=== PATIENT | male | born 1975 | race Caucasian/White ===

== ENCOUNTER 2017-05-15 22:39 | Emergency (ER) | payer SELFPAY ==
[2017-05-15 22:51] VITALS: BP 152/91
[2017-05-15] MEDS ORDERED: GI Cocktail Oral Solution 30 ML PO ONE (23:59)
[2017-05-15] MEDS ORDERED: Famotidine 20 MG/2 ML SDV IVPUSH ONE (23:59)
[2017-05-16 00:38] LABS: CHLORIDE,CL 101 mmol/L (101-111); SODIUM,NA 138 mmol/L (135-145)
--- NOTE | 2017-05-16 02:06 | EDM.PDOC ---
ED HPI GENERAL MEDICAL PROBLEM - General Chief Complaint: Abdominal Pain Stated Complaint: UPPER ABD PAIN Time Seen by Provider: 05/15/17 23:53 Source of Information: Reports: Patient History Limitations: Reports: No Limitations - History of Present Illness INITIAL COMMENTS - FREE TEXT/NARRATIVE: c/o epigastric pain, unable to find comfortable position. Has not tried anything for discomfort. No fevers No nausea or vomiting. Onset: Today Treatments [employer]MB[employer] TIP[employer] MACHINE: Reports: Other Medication(s) Epigastric Pain Score (Numeric/FACES): 6 - Related Data Allergies Allergy/AdvReac Type Severity Reaction Status Date / Time Penicillins Allergy Pain Verified 05/15/17 22:52 Home Meds: Home Meds Lisinopril/Hydrochlorothiazide [Lisinopril-Hctz 20-25 mg Tab] 1 tab PO DAILY [History] Past Medical History Cardiovascular History: Reports: Hypertension Social & Family History - Tobacco Use Smoking Status *Q: Current Every Day Smoker Years of Tobacco use: 25 Packs/Tins Daily: 3 Used Tobacco, but Quit: No - Caffeine Use Caffeine Use: Reports: Soda - Recreational Drug Use Recreational Drug Use: No ED ROS GENERAL - Review of Systems Review Of Systems: See Below Constitutional: Reports: Fever HEENT: Reports: No Symptoms Respiratory: Reports: No Symptoms Cardiovascular: Reports: No Symptoms GI/Abdominal: Reports: Abdominal Pain. Denies: Decreased Appetite, Difficulty Swallowing, Distension, Nausea Musculoskeletal: Reports: No Symptoms Skin: Reports: No Symptoms Neurological: Reports: No Symptoms Psychiatric: Reports: No Symptoms Hematologic/Lymphatic: Reports: No Symptoms ED EXAM, GI/ABD - Physical Exam Exam: See Below Exam Limited By: No Limitations General Appearance: Alert, Mild Distress Eyes: Bilateral: EOMI Nose: Normal Inspection Throat/Mouth: Normal Inspection Head: Atraumatic Neck: Normal Inspection Respiratory/Chest: No Respiratory Distress Cardiovascular: Normal Peripheral Pulses, Regular Rate, Rhythm GI/Abdominal Exam: Normal Bowel Sounds, Soft, Tender. No: Distended, Abnormal Bowel Sounds, Hepatomegaly, Splenomegaly Back Exam: Normal Inspection, Full Range of Motion Extremities: Normal Inspection, Normal Range of Motion Neurological: Alert, Oriented, Normal Cognition, Normal Gait Psychiatric: Normal Affect Skin Exam: Warm, Dry, Intact, Normal Color Course - Vital Signs Last Recorded V/S: Last Vital Signs Temp 97.2 F 08/16/17 22:50 Pulse 85 05/15/17 22:50 Resp 20 05/15/17 22:50 BP 152/91 H 05/15/17 22:50 Pulse Ox 96 05/15/17 22:50 - Orders/Labs/Meds Labs: Laboratory Tests 05/15/17 05/15/17 05/16/17 Range/Units 00:10 00:10 00:10 WBC 17.5 H (5.0-10.0) 10^3/uL RBC 5.12 (4.6-6.2) 10^6/uL Hgb 14.6 (14.0-18.0) g/dL Hct 44.0 (40.0-54.0) % MCV 85.9 (80-100) fL MCH 28.5 (27.0-34.0) pg MCHC 33.2 (33.0-35.0) g/dL Plt Count 227 (150-450) 10^3/uL Neut % (Auto) 79.2 H (42.2-75.2) % Lymph % (Auto) 14.7 L (20.5-50.1) % [place] % (Auto) 4.6 (2-8) % Eos % (Auto) 1.4 (1.0-3.0) % Baso % (Auto) 0.1 (0.0-1.0) % Sodium 138 (135-145) mmol/L Potassium 3.6 (3.6-5.0) mmol/L Chloride 101 (101-111) mmol/L Carbon Dioxide 25.0 (21.0-31.0) mmol/L Anion Gap 15.6 BUN 12 (7-18) mg/dL Creatinine 1.1 (0.6-1.3) mg/dL Est Cr Clr Drug Dosing 97.00 mL/min Estimated GFR (MDRD) > 60 BUN/Creatinine Ratio 10.90 Glucose 118 H (74-105) mg/dL Calcium 9.5 (8.4-10.2) mg/dl Total Bilirubin 1.0 (0.2-1.0) mg/dL AST 23 (10-42) IU/L ALT 24 (10-60) IU/L Alkaline Phosphatase 53 (42-121) IU/L Troponin I < 0.02 (0.00-0.02) ng/ml Total Protein 7.9 (6.7-8.2) g/dl Albumin 4.5 (3.2-5.5) g/dl Globulin 3.4 Albumin/Globulin Ratio 1.32 Amylase 58 (28-100) U/L Lipase 16 L (22-51) U/L Meds: Medications Discontinued Medications Generic Name Dose Route Start Last Admin Trade Name Freq PRN Reason Stop Dose Admin Al Hydroxide/Mg Hydroxide 30 ml 05/15/17 23:59 05/16/17 00:20 Gi Cocktail PO 05/16/17 00:00 30 ml ONETIME ONE Administration Famotidine 20 mg 05/15/17 23:59 05/16/17 00:20 Pepcid IVPUSH 05/16/17 00:00 20 mg ONETIME ONE Administration - Re-Assessments/Exams Free Text/Narrative Re-Assessment/Exam: 05/16/17 02:09 Pain improved following GI cocktail. Departure - Departure Time of Disposition: 02:00 Disposition: Home, Self-Care 01 Condition: Good Clinical Impression: Abdominal pain Qualifiers: Abdominal location: epigastric Qualified Code(s): R10.13 - Epigastric pain - Discharge Information Forms: ED Department Discharge Additional Instructions: light low fat bland diet omeprazole 20mg one daily follow up in clinic if not improving limit caffeine intake,
--- NOTE | 2017-05-17 10:54 | EKG ---
05/15/2017- VERONIKA GARCIA - EKG done on a 42-year-old male showing sinus rhythm, heart rate of 79 beats per minute, normal axis, normal intervals. No acute ST-T wave changes. [facility] /[id number]
== END 2017-05-16 02:07 | disposition home or self-care (01) ==
LOC: DL.ED 22:39
DX: R10.13 Epigastric pain (principal); F17.210 Nicotine dependence, cigarettes, uncomplicated; I10 Essential (primary) hypertension; Z88.0 Allergy status to penicillin; Z79.899 Other long term (current) drug therapy
CPT/HCPCS: 36415; 71010; 74020; 80053; 82150; 83690; 84484; 85025; 96374; 99284; A9270; S0028

== ENCOUNTER 2019-06-08 19:16 | Observation (INO) | payer SELFPAY ==
--- NOTE | 2019-06-08 19:47 | EDM.PDOC ---
ED HPI GENERAL MEDICAL PROBLEM - General Chief Complaint: General Stated Complaint: IMMOBILITY, STOMACH PAIN, DIFFICULTY SLEEPING Time Seen by Provider: 06/08/19 19:35 Source of Information: Reports: Patient History Limitations: Reports: No Limitations - History of Present Illness INITIAL COMMENTS - FREE TEXT/NARRATIVE: This 44 yo male patient reports to the ED with right upper quadrant abdominal pain. The patient reports his symptoms started on Saturday and have continued since that time. The patient reports he has not take any thing for temporary symptom relief, but he has attempted to drink some Coke and stick to a BRAT diet. The patient has not been seen in the clinic for these symptoms. The patient was seen previously for GERD with similar symptoms. Onset Date: 06/06/19 Duration: Constant Location: Reports: Other Quality: Reports: Ache, Dull, Other Severity: Moderate Improves with: Reports: None Worsens with: Reports: None Context: Reports: Other Associated Symptoms: Reports: Nausea/Vomiting Treatments GLACIOLOGIST: Reports: Other Medication(s) Upper Abdomen Pain Score (Numeric/FACES): 7 - Related Data Allergies Allergy/AdvReac Type Severity Reaction Status Date / Time Penicillins Allergy Pain Verified 06/08/19 19:23 Home Meds: Home Meds Lisinopril/Hydrochlorothiazide [Lisinopril-Hctz 20-25 mg Tab] 1 tab PO DAILY [History] Past Medical History Cardiovascular History: Reports: Hypertension Respiratory History: Reports: Bronchitis, Recurrent Gastrointestinal History: Reports: GERD Social & Family History - Family History Family Medical History: Noncontributory - Tobacco Use Smoking Status *Q: Current Every Day Smoker Years of Tobacco use: 27 Packs/Tins Daily: 2 - Caffeine Use Caffeine Use: Reports: Soda - Recreational Drug Use Recreational Drug Use: No ED ROS GENERAL - Review of Systems Review Of Systems: ROS reveals no pertinent complaints other than HPI. ED EXAM, GENERAL - Physical Exam Exam: See Below Exam Limited By: No Limitations General Appearance: Alert, WD/WN, Mild Distress Eye Exam: Bilateral Eye: EOMI, Normal Inspection, PERRL Ears: Normal External Exam, Normal Canal, Hearing Grossly Normal, Normal TMs Nose: Normal Inspection, Normal Mucosa, No Blood Throat/Mouth: Normal Inspection, Normal Lips, Normal Teeth, Normal Gums, Normal Oropharynx, Normal Voice, No Airway Compromise Head: Atraumatic, Normocephalic Neck: Normal Inspection, Supple, Non-Tender, Full Range of Motion Respiratory/Chest: No Respiratory Distress, Lungs Clear, Normal Breath Sounds, No Accessory Muscle Use, Chest Non-Tender Cardiovascular: Normal Peripheral Pulses, Regular Rate, Rhythm, No Edema, No Gallop, No JVD, No Murmur, No Rub GI/Abdominal: Normal Bowel Sounds, Soft, No Organomegaly, No Abnormal Bruit, No Mass, Pelvis Stable, Tender (RUQ) (Male) Exam: Deferred Rectal (Males) Exam: Deferred Back Exam: Normal Inspection, Full Range of Motion, NT Extremities: Normal Inspection, Normal Range of Motion, Non-Tender, Normal Capillary Refill, No Pedal Edema Psychiatric: Normal Affect, Normal Mood Skin Exam: Warm, Dry, Intact, Normal Color, No Rash Lymphatic: No Adenopathy Course - Vital Signs Last Recorded V/S: Last Vital Signs Temp 35.1 C L 06/08/19 19:23 Pulse 116 H 06/08/19 19:23 Resp 16 06/08/19 19:23 BP 145/85 H 06/08/19 19:23 Pulse Ox 95 06/08/19 19:23 - Orders/Labs/Meds Orders: Active Orders 24 hr Category Date Time Status Abdomen Pelvis w Cont [CT] Urgent Exams 06/08/19 21:34 Ordered CULTURE BLOOD [BC] Stat Lab 06/08/19 20:42 Received CULTURE BLOOD [BC] Stat Lab 06/08/19 20:47 Received CULTURE URINE [RM] Stat Lab 06/08/19 19:36 Received Lactated Ringers [Ringers, Lactated] 1,000 ml Med 06/08/19 23:45 Ordered IV ASDIRECTED Blood Culture x2 Reflex Set [OM.PC] Stat Oth 06/08/19 20:06 Ordered Medication Orders Lactated Ringer's (Ringers, Lactated) 1,000 mls @ 500 mls/hr IV ASDIRECTED LILLI Labs: Laboratory Tests 06/08/19 06/08/19 06/08/19 Range/Units 19:36 19:36 19:45 WBC (5.0-10.0) 10^3/uL RBC (4.6-6.2) 10^6/uL Hgb (14.0-18.0) g/dL Hct (40.0-54.0) % MCV (80-100) fL MCH (27.0-34.0) pg MCHC (33.0-35.0) g/dL Plt Count (150-450) 10^3/uL Neut % (Auto) (42.2-75.2) % Lymph % (Auto) (20.5-50.1) % [place] % (Auto) (2-8) % Eos % (Auto) (1.0-3.0) % Baso % (Auto) (0.0-1.0) % Add Manual Diff Neutrophils % (Manual) (42-75) % Band Neutrophils % % Lymphocytes % (Manual) (20-50) % Monocytes % (Manual) (2-8) % Sodium (135-145) mmol/L Potassium (3.6-5.0) mmol/L Chloride (101-111) mmol/L Carbon Dioxide (21.0-31.0) mmol/L Anion Gap BUN (7-18) mg/dL Creatinine (0.6-1.3) mg/dL Est Cr Clr Drug Dosing mL/min Estimated GFR (MDRD) BUN/Creatinine Ratio Glucose (74-105) mg/dL Lactic Acid (0.5-2.2) mmol/L Calcium (8.4-10.2) mg/dl Magnesium 1.9 (1.8-2.5) mg/dL Total Bilirubin (0.2-1.0) mg/dL AST (10-42) IU/L ALT (10-60) IU/L Alkaline Phosphatase (42-121) IU/L Total Protein (6.7-8.2) g/dl Albumin (3.2-5.5) g/dl Globulin Albumin/Globulin Ratio Amylase 57 (28-100) U/L Lipase 52 H (22-51) U/L Urine Color Yellow (YELLOW) Urine Appearance Slightly cloudy (CLEAR) Urine pH 5.5 (5.0-9.0) Ur Specific [place] >= 1.030 (1.005-1.030) Urine Protein >=300 H (NEGATIVE) Urine Glucose (UA) Negative (NEGATIVE) Urine Ketones 40 H (NEGATIVE) Urine Occult Blood Moderate H (NEGATIVE) Urine Nitrite Positive H (NEGATIVE) Urine Bilirubin Small H (NEGATIVE) Urine Urobilinogen 2.0 H (0.2-1.0) mg/dL Ur Leukocyte Esterase Negative (NEGATIVE) Urine RBC 20-30 H /HPF Urine WBC 0-5 (0-5/HPF) /HPF Ur Epithelial Cells Rare (NOT SEEN) /HPF Amorphous Sediment Few (NOT SEEN) /HPF Urine Bacteria Few (0-FEW/HPF) /HPF Urine Mucus Few H (NOT SEEN) /LPF Urine Opiates Screen Negative (NEGATIVE) Ur Oxycodone Screen Negative (NEGATIVE) Urine Methadone Screen Negative (NEGATIVE) Acetaminophen < 10 ug/mL Ur Barbiturates Screen Negative (NEGATIVE) U Tricyclic Antidepress Negative (NEGATIVE) Ur Phencyclidine Scrn Negative (NEGATIVE) Ur Amphetamine Screen Negative (NEGATIVE) U Methamphetamines Scrn Negative (NEGATIVE) Urine MDMA Screen Negative (NEGATIVE) U Benzodiazepines Scrn Negative (NEGATIVE) Urine Cocaine Screen Negative (NEGATIVE) U Marijuana (THC) Screen Negative (NEGATIVE) 06/08/19 06/08/19 06/08/19 Range/Units 19:45 19:45 19:45 WBC 34.3 H* (5.0-10.0) 10^3/uL RBC 5.55 (4.6-6.2) 10^6/uL Hgb 16.1 D (14.0-18.0) g/dL Hct 47.4 (40.0-54.0) % MCV 85.4 (80-100) fL MCH 29.0 (27.0-34.0) pg MCHC 34.0 (33.0-35.0) g/dL Plt Count 221 (150-450) 10^3/uL Neut % (Auto) 86.9 H (42.2-75.2) % Lymph % (Auto) 5.9 L (20.5-50.1) % [place] % (Auto) 6.9 (2-8) % Eos % (Auto) 0.1 L (1.0-3.0) % Baso % (Auto) 0.2 (0.0-1.0) % Add Manual Diff Yes Neutrophils % (Manual) 82 H (42-75) % Band Neutrophils % 5 % Lymphocytes % (Manual) 8 L (20-50) % Monocytes % (Manual) 5 (2-8) % Sodium 135 (135-145) mmol/L Potassium 3.2 L (3.6-5.0) mmol/L Chloride 100 L (101-111) mmol/L Carbon Dioxide 23.0 (21.0-31.0) mmol/L Anion Gap 15.2 BUN 11 (7-18) mg/dL Creatinine 1.0 (0.6-1.3) mg/dL Est Cr Clr Drug Dosing 104.54 mL/min Estimated GFR (MDRD) > 60 BUN/Creatinine Ratio 11.00 Glucose 128 H (74-105) mg/dL Lactic Acid 1.0 (0.5-2.2) mmol/L Calcium 8.9 (8.4-10.2) mg/dl Magnesium (1.8-2.5) mg/dL Total Bilirubin 2.5 H (0.2-1.0) mg/dL AST 45 H (10-42) IU/L ALT 294 H (10-60) IU/L Alkaline Phosphatase 86 (42-121) IU/L Total Protein 8.2 (6.7-8.2) g/dl Albumin 4.3 (3.2-5.5) g/dl Globulin 3.9 Albumin/Globulin Ratio 1.10 Amylase (28-100) U/L Lipase (22-51) U/L Urine Color (YELLOW) Urine Appearance (CLEAR) Urine pH (5.0-9.0) Ur Specific [place] (1.005-1.030) Urine Protein (NEGATIVE) Urine Glucose (UA) (NEGATIVE) Urine Ketones (NEGATIVE) Urine Occult Blood (NEGATIVE) Urine Nitrite (NEGATIVE) Urine Bilirubin (NEGATIVE) Urine Urobilinogen (0.2-1.0) mg/dL Ur Leukocyte Esterase (NEGATIVE) Urine RBC /HPF Urine WBC (0-5/HPF) /HPF Ur Epithelial Cells (NOT SEEN) /HPF Amorphous Sediment (NOT SEEN) /HPF Urine Bacteria (0-FEW/HPF) /HPF Urine Mucus (NOT SEEN) /LPF Urine Opiates Screen (NEGATIVE) Ur Oxycodone Screen (NEGATIVE) Urine Methadone Screen (NEGATIVE) Acetaminophen ug/mL Ur Barbiturates Screen (NEGATIVE) U Tricyclic Antidepress (NEGATIVE) Ur Phencyclidine Scrn (NEGATIVE) Ur Amphetamine Screen (NEGATIVE) U Methamphetamines Scrn (NEGATIVE) Urine MDMA Screen (NEGATIVE) U Benzodiazepines Scrn (NEGATIVE) Urine Cocaine Screen (NEGATIVE) U Marijuana (THC) Screen (NEGATIVE) Meds: Medications Generic Name Dose Route Start Last Admin Trade Name Freq PRN Reason Stop Dose Admin Lactated Ringer's 1,000 mls @ 500 mls/hr 06/08/19 23:45 Ringers, Lactated IV ASDIRECTED LILLI Discontinued Medications Generic Name Dose Route Start Last Admin Trade Name Cecilia PRN Reason Stop Dose Admin Sodium Chloride 1,000 mls @ 999 mls/hr 06/08/19 20:06 06/08/19 20:09 Normal Saline IV 06/08/19 21:06 999 mls/hr .BOLUS ONE Administration Iopamidol 100 ml 06/08/19 21:34 06/08/19 22:46 Isovue-300 (61%) IVPUSH 06/08/19 21:35 99 ml ONETIME ONE Administration - Re-Assessments/Exams Free Text/Narrative Re-Assessment/Exam: 06/08/19 21:11 Patient care delayed due to lab analyzer breaking down. Lab called reporting the analyzer was not working at 2014 and estimated 20 minutes for correcting the problem. At time of this note, no further notification was received from lab. Departure - Departure Time of Disposition: 23:46 Disposition: Admitted As Inpatient 67 Condition: Fair Clinical Impression: Pancreatitis Qualifiers: Chronicity: acute Pancreatitis type: unspecified pancreatitis type Acute pancreatitis complication: unspecified Qualified Code(s): K85.90 - Acute pancreatitis without necrosis or infection, unspecified Leukocytosis Qualifiers: Leukocytosis type: other Qualified Code(s): D72.828 - Other elevated white blood cell count - Discharge Information *PRESCRIPTION DRUG MONITORING PROGRAM REVIEWED*: Not Applicable *COPY OF PRESCRIPTION DRUG MONITORING REPORT IN PATIENT LJ: Not Applicable Care Plan Goals: Discussed the patient's history, examination, lab and CT results with Dr. Leo. Dr. Leo accepted the patient for continued evaluation and management as an observation patient at [facility] in [place]. - My Orders Last 24 Hours: My Active Orders 06/08/19 19:36 CULTURE URINE [RM] Stat 06/08/19 20:06 Blood Culture x2 Reflex Set [OM.PC] Stat 06/08/19 20:42 CULTURE BLOOD [BC] Stat 06/08/19 20:47 CULTURE BLOOD [BC] Stat 06/08/19 21:34 Abdomen Pelvis w Cont [CT] Urgent 06/08/19 23:45 Lactated Ringers [Ringers, Lactated] 1,000 ml IV ASDIRECTED - Assessment/Plan Last 24 Hours: My Active Orders 06/08/19 19:36 CULTURE URINE [RM] Stat 06/08/19 20:06 Blood Culture x2 Reflex Set [OM.PC] Stat 06/08/19 20:42 CULTURE BLOOD [BC] Stat 06/08/19 20:47 CULTURE BLOOD [BC] Stat 06/08/19 21:34 Abdomen Pelvis w Cont [CT] Urgent 06/08/19 23:45 Lactated Ringers [Ringers, Lactated] 1,000 ml IV ASDIRECTED
[2019-06-08] MEDS ORDERED: Sodium Chloride 0.9% 1,000 ML IV ONE (20:06)
[2019-06-08 21:27] LABS: ACETAMINOPHEN < 10 ug/mL
[2019-06-08 21:29] LABS: ANION GAP 15.2; CHLORIDE,CL 100 mmol/L (101-111); SODIUM,NA 135 mmol/L (135-145)
[2019-06-08] MEDS ORDERED: Iopamidol 612 MG/ML 100 ML Bottle IVPUSH ONE (21:34)
[2019-06-08] MEDS: Lactated Ringers 1,000 ML IV SCH (23:58)
[2019-06-09] MEDS ORDERED: Potassium Chloride 10 MEQ Tab.ER PO ONE (00:22)
[2019-06-09] MEDS ORDERED: Zolpidem 5 MG Tab PO PRN (00:29)
[2019-06-09] MEDS ORDERED: Morphine 2 MG/ML Syringe IVPUSH PRN (00:29)
[2019-06-09] MEDS ORDERED: Acetaminophen/HYDROcodone 325-10 MG Tab PO PRN (00:29)
[2019-06-09] MEDS ORDERED: Acetaminophen 325 MG Tab PO PRN (00:29)
[2019-06-09] MEDS ORDERED: Sodium Chloride 0.9% 10 ML Syringe FLUSH PRN (00:29)
[2019-06-09] MEDS ORDERED: Ondansetron 4 MG/2 ML SDV IVPUSH PRN (00:29)
--- NOTE | 2019-06-09 00:36 | PCM.HP ---
H&P History of Present Illness - General Date of Service: 06/09/19 Admit Problem/Dx: Admission Diagnosis/Problem Admission Diagnosis/Problem Pancreatitis Source of Information: Patient - History of Present Illness Initial Comments - Free Text/Narative: 44-year-old gentleman with mild obesity, history of hypertension. Presented with abdominal pain and malaise. Symptoms started Saturday. Has been progressive. He is complaining of an epigastric pain that moved more to the right upper quadrant. The pain is reticulocyte of a constant day and night. Has not been able to sleep has minimal appetite. No associated fever but feeling episodes of warmth. I was bowel movement that the day before admission which was normal. Had an episode of nausea and vomiting on Saturday but nothing since. No shortness of breath, chest pain. No lower extremity swelling. He felt that the symptoms resembling prior "gerd", and try to take a pop for at the symptoms but they did not improved. Upper Abdomen Pain Score (Numeric/FACES): 7 - Related Data Allergies/Adverse Reactions: Allergies Allergy/AdvReac Type Severity Reaction Status Date / Time Penicillins Allergy Pain Verified 06/08/19 19:23 Home Medications: Home Meds Lisinopril/Hydrochlorothiazide [Lisinopril-Hctz 20-25 mg Tab] 1 tab PO DAILY [History] Past Medical History Cardiovascular History: Reports: Hypertension Respiratory History: Reports: Bronchitis, Recurrent Gastrointestinal History: Reports: GERD Social & Family History - Family History Family Medical History: Noncontributory - Tobacco Use Smoking Status *Q: Current Every Day Smoker Years of Tobacco use: 27 Packs/Tins Daily: 2 - Caffeine Use Caffeine Use: Reports: Soda - Recreational Drug Use Recreational Drug Use: No H&P Review of Systems - Review of Systems: Review Of Systems: See Below General: Reports: Fever (Subjective), Malaise, Weakness, Fatigue Pulmonary: Denies: Shortness of Breath Cardiovascular: Denies: Chest Pain, Edema Gastrointestinal: Reports: Abdominal Pain, Anorexia, Nausea. Denies: Black Stool, Bloody Stool, Constipation, Diarrhea Genitourinary: Denies: Dysuria Psychiatric: Denies: Confusion Exam - Exam Exam: See Below - Vital Signs Vital Signs: Last Vital Signs Temp 35.1 C L 06/08/19 19:23 Pulse 116 H 06/08/19 19:23 Resp 16 09/09/19 19:23 BP 145/85 H 06/08/19 19:23 Pulse Ox 95 06/08/19 19:23 Weight: 123.649 kg - Exam General: Alert, Oriented Neck: Supple, Trachea Midline Lungs: Clear to Auscultation, Normal Respiratory Effort Cardiovascular: Regular Rate, Regular Rhythm GI/Abdominal Exam: Normal Bowel Sounds, Soft, No Distention, Tender (Right upper quadrant tenderness), Other (Obese). No: Guarding, Rigid, Rebound Extremities: No Pedal Edema - Patient Data Lab Results Last 24 hrs: Laboratory Results - last 24 hr 06/08/19 06/08/19 06/08/19 Range/Units 19:36 19:36 19:45 WBC (5.0-10.0) 10^3/uL RBC (4.6-6.2) 10^6/uL Hgb (14.0-18.0) g/dL Hct (40.0-54.0) % MCV (80-100) fL MCH (27.0-34.0) pg MCHC (33.0-35.0) g/dL Plt Count (150-450) 10^3/uL Neut % (Auto) (42.2-75.2) % Lymph % (Auto) (20.5-50.1) % [place] % (Auto) (2-8) % Eos % (Auto) (1.0-3.0) % Baso % (Auto) (0.0-1.0) % Add Manual Diff Neutrophils % (Manual) (42-75) % Band Neutrophils % % Lymphocytes % (Manual) (20-50) % Monocytes % (Manual) (2-8) % Sodium (135-145) mmol/L Potassium (3.6-5.0) mmol/L Chloride (101-111) mmol/L Carbon Dioxide (21.0-31.0) mmol/L Anion Gap BUN (7-18) mg/dL Creatinine (0.6-1.3) mg/dL Est Cr Clr Drug Dosing mL/min Estimated GFR (MDRD) BUN/Creatinine Ratio Glucose (74-105) mg/dL Lactic Acid (0.5-2.2) mmol/L Calcium (8.4-10.2) mg/dl Magnesium 1.9 (1.8-2.5) mg/dL Total Bilirubin (0.2-1.0) mg/dL AST (10-42) IU/L ALT (10-60) IU/L Alkaline Phosphatase (42-121) IU/L Total Protein (6.7-8.2) g/dl Albumin (3.2-5.5) g/dl Globulin Albumin/Globulin Ratio Amylase 57 (28-100) U/L Lipase 52 H (22-51) U/L Urine Color Yellow (YELLOW) Urine Appearance Slightly cloudy (CLEAR) Urine pH 5.5 (5.0-9.0) Ur Specific [place] >= 1.030 (1.005-1.030) Urine Protein >=300 H (NEGATIVE) Urine Glucose (UA) Negative (NEGATIVE) Urine Ketones 40 H (NEGATIVE) Urine Occult Blood Moderate H (NEGATIVE) Urine Nitrite Positive H (NEGATIVE) Urine Bilirubin Small H (NEGATIVE) Urine Urobilinogen 2.0 H (0.2-1.0) mg/dL Ur Leukocyte Esterase Negative (NEGATIVE) Urine RBC 20-30 H /HPF Urine WBC 0-5 (0-5/HPF) /HPF Ur Epithelial Cells Rare (NOT SEEN) /HPF Amorphous Sediment Few (NOT SEEN) /HPF Urine Bacteria Few (0-FEW/HPF) /HPF Urine Mucus Few H (NOT SEEN) /LPF Urine Opiates Screen Negative (NEGATIVE) Ur Oxycodone Screen Negative (NEGATIVE) Urine Methadone Screen Negative (NEGATIVE) Acetaminophen < 10 ug/mL Ur Barbiturates Screen Negative (NEGATIVE) U Tricyclic Antidepress Negative (NEGATIVE) Ur Phencyclidine Scrn Negative (NEGATIVE) Ur Amphetamine Screen Negative (NEGATIVE) U Methamphetamines Scrn Negative (NEGATIVE) Urine MDMA Screen Negative (NEGATIVE) U Benzodiazepines Scrn Negative (NEGATIVE) Urine Cocaine Screen Negative (NEGATIVE) U Marijuana (THC) Screen Negative (NEGATIVE) 06/08/19 06/08/19 06/08/19 Range/Units 19:45 19:45 19:45 WBC 34.3 H* (5.0-10.0) 10^3/uL RBC 5.55 (4.6-6.2) 10^6/uL Hgb 16.1 D (14.0-18.0) g/dL Hct 47.4 (40.0-54.0) % MCV 85.4 (80-100) fL MCH 29.0 (27.0-34.0) pg MCHC 34.0 (33.0-35.0) g/dL Plt Count 221 (150-450) 10^3/uL Neut % (Auto) 86.9 H (42.2-75.2) % Lymph % (Auto) 5.9 L (20.5-50.1) % [place] % (Auto) 6.9 (2-8) % Eos % (Auto) 0.1 L (1.0-3.0) % Baso % (Auto) 0.2 (0.0-1.0) % Add Manual Diff Yes Neutrophils % (Manual) 82 H (42-75) % Band Neutrophils % 5 % Lymphocytes % (Manual) 8 L (20-50) % Monocytes % (Manual) 5 (2-8) % Sodium 135 (135-145) mmol/L Potassium 3.2 L (3.6-5.0) mmol/L Chloride 100 L (101-111) mmol/L Carbon Dioxide 23.0 (21.0-31.0) mmol/L Anion Gap 15.2 BUN 11 (7-18) mg/dL Creatinine 1.0 (0.6-1.3) mg/dL Est Cr Clr Drug Dosing 104.54 mL/min Estimated GFR (MDRD) > 60 BUN/Creatinine Ratio 11.00 Glucose 128 H (74-105) mg/dL Lactic Acid 1.0 (0.5-2.2) mmol/L Calcium 8.9 (8.4-10.2) mg/dl Magnesium (1.8-2.5) mg/dL Total Bilirubin 2.5 H (0.2-1.0) mg/dL AST 45 H (10-42) IU/L ALT 294 H (10-60) IU/L Alkaline Phosphatase 86 (42-121) IU/L Total Protein 8.2 (6.7-8.2) g/dl Albumin 4.3 (3.2-5.5) g/dl Globulin 3.9 Albumin/Globulin Ratio 1.10 Amylase (28-100) U/L Lipase (22-51) U/L Urine Color (YELLOW) Urine Appearance (CLEAR) Urine pH (5.0-9.0) Ur Specific [place] (1.005-1.030) Urine Protein (NEGATIVE) Urine Glucose (UA) (NEGATIVE) Urine Ketones (NEGATIVE) Urine Occult Blood (NEGATIVE) Urine Nitrite (NEGATIVE) Urine Bilirubin (NEGATIVE) Urine Urobilinogen (0.2-1.0) mg/dL Ur Leukocyte Esterase (NEGATIVE) Urine RBC /HPF Urine WBC (0-5/HPF) /HPF Ur Epithelial Cells (NOT SEEN) /HPF Amorphous Sediment (NOT SEEN) /HPF Urine Bacteria (0-FEW/HPF) /HPF Urine Mucus (NOT SEEN) /LPF Urine Opiates Screen (NEGATIVE) Ur Oxycodone Screen (NEGATIVE) Urine Methadone Screen (NEGATIVE) Acetaminophen ug/mL Ur Barbiturates Screen (NEGATIVE) U Tricyclic Antidepress (NEGATIVE) Ur Phencyclidine Scrn (NEGATIVE) Ur Amphetamine Screen (NEGATIVE) U Methamphetamines Scrn (NEGATIVE) Urine MDMA Screen (NEGATIVE) U Benzodiazepines Scrn (NEGATIVE) Urine Cocaine Screen (NEGATIVE) U Marijuana (THC) Screen (NEGATIVE) Result Diagrams: 06/08/19 19:45 06/08/19 19:45 Imaging Impressions Last 24 hrs: CT of the abdomen per reading "impression pancreatitis." Gallbladder and bile ducts "No acute or concerning findings" - Problem List (1) Abdominal pain SNOMED Code(s): 66627547 ICD Code: R10.9 - UNSPECIFIED ABDOMINAL PAIN Status: Acute Current Visit : No Qualifiers: Abdominal location: epigastric Qualified Code(s): R10.13 - Epigastric pain (2) Leukocytosis SNOMED Code(s): 752960390, 485491170 ICD Code: D72.829 - ELEVATED WHITE BLOOD CELL COUNT, UNSPECIFIED Status: Acute Current Visit: No Qualifiers: Leukocytosis type: other Qualified Code(s): D72.828 - Other elevated white blood cell count (3) Pancreatitis SNOMED Code(s): 27896913 ICD Code: K85.90 - ACUTE PANCREATITIS WITHOUT NECROSIS OR INFECTION, UNSP Status: Acute Current Visit: No Qualifiers: Chronicity: acute Pancreatitis type: unspecified pancreatitis type Acute pancreatitis complication: unspecified Qualified Code(s): K85.90 - Acute pancreatitis without necrosis or infection, unspecified Problem List Initiated/Reviewed/Updated: Yes Orders Last 24hrs: Active Orders 24 hr Category Date Time Status Admission Diagnosis [ADT] Routine ADT 06/08/19 23:51 Ordered Admission Status [Patient Status] [ADT] Routine ADT 06/08/19 23:51 Active Antiembolic Devices [RC] PER UNIT ROUTINE Care 06/09/19 00:30 Ordered Oxygen Therapy [RC] PRN Care 06/09/19 00:29 Ordered Peripheral IV Care [RC] . DIRECTED Care 06/09/19 00:30 Ordered Up With Assistance [RC] ASDIRECTED Care 06/09/19 00:29 Ordered VTE/DVT Education [RC] PER UNIT ROUTINE Care 06/09/19 00:29 Ordered Vital Signs [RC] Q4H Care 06/09/19 00:29 Ordered Clear Liquid Diet [DIET] Diet 06/09/19 Breakfast Ordered Abdomen Ltd [US] Routine Exams 06/09/19 07:00 Ordered BASIC METABOLIC PANEL,BMP [CHEM] AM Lab 06/09/19 05:11 Ordered BASIC METABOLIC PANEL,BMP [CHEM] AM Lab 06/10/19 05:11 Ordered CBC WITH AUTO DIFF [HEME] AM Lab 06/09/19 05:11 Ordered CBC WITH AUTO DIFF [HEME] AM Lab 06/10/19 05:11 Ordered CULTURE BLOOD [BC] Stat Lab 06/08/19 20:42 Received CULTURE BLOOD [BC] Stat Lab 06/08/19 20:47 Received CULTURE URINE [RM] Stat Lab 06/08/19 19:36 Received HEPATIC FUNCTION PANEL,HFP [CHEM] Routine Lab 06/09/19 05:00 Ordered LIPASE [CHEM] AM Lab 06/09/19 05:11 Ordered Acetaminophen [Tylenol] Med 06/09/19 00:29 Ordered 650 mg PO Q4H PRN Acetaminophen/HYDROcodone [[place] 325-10 MG] Med 06/09/19 00:29 Ordered 1 tab PO Q4H PRN Ciprofloxacin in D5W [Cipro in D5W 400 MG/200 ML] 400 Med 06/09/19 09:00 Ordered mg Premix Bag 1 bag IV Q12HR Heparin Sodium Med 06/09/19 06:00 Ordered 5,000 units SUBCUT Q8HR Lactated Ringers [Ringers, Lactated] 1,000 ml Med 06/08/19 23:45 Active IV ASDIRECTED Lisinopril [Prinivil] Med 06/09/19 09:00 Ordered 20 mg PO DAILY Morphine Med 06/09/19 00:29 Ordered 2 mg IVPUSH Q2H PRN Ondansetron [Zofran] Med 06/09/19 00:29 Ordered 4 mg IVPUSH Q6H PRN Pantoprazole [ProTONIX] Med 06/09/19 06:00 Ordered 40 mg PO BIDAC Sodium Chloride 0.9% [Saline Flush] Med 06/09/19 00:29 Ordered 10 ml FLUSH ASDIRECTED PRN Zolpidem [Ambien] Med 06/09/19 00:29 Ordered 5 mg PO BEDTIME PRN hydroCHLOROthiazide Med 06/09/19 09:00 Ordered 25 mg PO DAILY metroNIDAZOLE/Normal Saline [Flagyl 500 MG in NS 100 ML Med 06/09/19 00:30 Ordered ] 500 mg Premix Bag 100 bag IV Q8H Antiembolic Hose [OM.PC] Per Unit Routine Oth 06/09/19 00:29 Ordered Blood Culture x2 Reflex Set [OM.PC] Stat Oth 06/08/19 20:06 Ordered Peripheral IV Insertion Adult [OM.PC] Routine Oth 06/09/19 00:29 Ordered Resuscitation Status Routine Resus Stat 06/09/19 00:29 Ordered Medication Orders Acetaminophen (Tylenol) 650 mg PO Q4H PRN PRN Reason: Pain (Mild 1-3)/fever Hydrocodone Bitart/Acetaminophen ([place] 325-10 Mg) 1 tab PO Q4H PRN PRN Reason: Pain (moderate 4-6) Heparin Sodium (Porcine) (Heparin Sodium) 5,000 units SUBCUT Q8HR [facility] Hydrochlorothiazide (Hydrochlorothiazide) 25 mg PO DAILY [facility] Lactated Ringer's (Ringers, Lactated) 1,000 mls @ 500 mls/hr IV ASDIRECTED LILLI Last Admin: 06/08/19 23:58 Dose: 500 mls/hr Ciprofloxacin/Dextrose 400 mg/ (Premix) 200 mls @ 200 mls/hr IV Q12HR [facility] Metronidazole 500 mg/ Premix 100 mls @ 100 mls/hr IV Q8H [facility] Lisinopril (Prinivil) 20 mg PO DAILY [facility] Morphine Sulfate (Morphine) 2 mg IVPUSH Q2H PRN PRN Reason: Pain (severe 7-10) Ondansetron HCl (Zofran) 4 mg IVPUSH Q6H PRN PRN Reason: Nausea/Vomiting Pantoprazole Sodium (Protonix) 40 mg PO BIDAC LILLI Sodium Chloride (Saline Flush) 10 ml FLUSH ASDIRECTED PRN PRN Reason: Keep Vein Open Zolpidem Tartrate (Ambien) 5 mg PO BEDTIME PRN PRN Reason: Sleep Assessment/Plan Comment:: 44-year-old gentleman with a history of hypertension. History of obesity. The patient presented with abdominal pain, malaise Noted to have leukocytosis, mildly elevated liver enzymes, normal lipase, amylase CT showing "pancreatitis" Abdominal pain With normal lipase and amylase but with abnormal CT showing pancreatitis Clinically appears to have more right upper quadrant abdominal pain compatible with cholecystitis For now repeat liver enzymes in the morning, repeat the lipase in the morning Obtain right upper quadrant ultrasound Treat the patient symptomatically with pain medications of Tylenol, hydrocodone , morphine IV Start Zosyn for leukocytosis, possible cholecystitis Clear liquid diet for potential pancreatitis Will give proton pump inhibitor with a history of GERD Hypokalemia We will replace and recheck Hypertension Continue hydrochlorothiazide, lisinopril DVT prophylaxis with subcutaneous heparin
[2019-06-09] MEDS: metroNIDAZOLE/Normal Saline 500 MG in Premix Bag 100 BAG IV SCH ×3 (01:03→16:30)
[2019-06-09] MEDS: Heparin Sodium 5,000 Units/ML Vial SUBCUT SCH ×3 (06:05→22:04)
[2019-06-09] MEDS: Pantoprazole 40 MG Tab.CR PO SCH ×2 (06:06→16:32)
[2019-06-09 07:07] LABS: ANION GAP 14.6; CHLORIDE,CL 102 mmol/L (101-111); SODIUM,NA 137 mmol/L (135-145)
[2019-06-09] MEDS: Lisinopril 20 MG Tab PO SCH (08:19)
[2019-06-09] MEDS: Hydrochlorothiazide 25 MG Tab PO SCH (08:19)
[2019-06-09] MEDS ORDERED: Ciprofloxacin in D5W 400 MG in Premix Bag 1 BAG IV SCH ×2 (09:00)
--- NOTE | 2019-06-09 09:47 | PCM.PN ---
- General Info Date of Service: 06/09/19 Admission Dx/Problem (Free Text): Admission Diagnosis/Problem Admission Diagnosis/Problem Pancreatitis Subjective Update: feeling better abd pain is in ruq, started days prior to admission somewhat improved no associated vomiting no fever Functional Status: Reports: Pain Controlled - Review of Systems General: Denies: Fever Pulmonary: Denies: Shortness of Breath Cardiovascular: Denies: Chest Pain Gastrointestinal: Reports: Abdominal Pain Neurological: Denies: Confusion - Patient Data Vitals - Most Recent: Last Vital Signs Temp 37.4 C 06/09/19 07:59 Pulse 96 06/09/19 07:59 Resp 20 06/09/19 07:59 BP 144/90 H 06/09/19 08: Pulse Ox 99 06/09/19 07:59 Weight - Most Recent: 123.649 kg I&O - Last 24 Hours: Intake & Output 06/08/19 06/09/19 06/09/19 22:59 06:59 14:59 Intake Total 495 Output Total 300 Balance 195 Lab Results Last 24 Hours: Laboratory Results - last 24 hr 06/08/19 06/08/19 06/08/19 Range/Units 19:36 19:36 19:45 WBC (5.0-10.0) 10^3/uL RBC (4.6-6.2) 10^6/uL Hgb (14.0-18.0) g/dL Hct (40.0-54.0) % MCV (80-100) fL MCH (27.0-34.0) pg MCHC (33.0-35.0) g/dL Plt Count (150-450) 10^3/uL Neut % (Auto) (42.2-75.2) % Lymph % (Auto) (20.5-50.1) % [place] % (Auto) (2-8) % Eos % (Auto) (1.0-3.0) % Baso % (Auto) (0.0-1.0) % Add Manual Diff Neutrophils % (Manual) (42-75) % Band Neutrophils % % Lymphocytes % (Manual) (20-50) % Monocytes % (Manual) (2-8) % Sodium (135-145) mmol/L Potassium (3.6-5.0) mmol/L Chloride (101-111) mmol/L Carbon Dioxide (21.0-31.0) mmol/L Anion Gap BUN (7-18) mg/dL Creatinine (0.6-1.3) mg/dL Est Cr Clr Drug Dosing mL/min Estimated GFR (MDRD) BUN/Creatinine Ratio Glucose (74-105) mg/dL Lactic Acid (0.5-2.2) mmol/L Calcium (8.4-10.2) mg/dl Magnesium 1.9 (1.8-2.5) mg/dL Total Bilirubin (0.2-1.0) mg/dL Direct Bilirubin (0.0-0.2) mg/dL Indirect Bilirubin AST (10-42) IU/L ALT (10-60) IU/L Alkaline Phosphatase (42-121) IU/L Total Protein (6.7-8.2) g/dl Albumin (3.2-5.5) g/dl Globulin Albumin/Globulin Ratio Amylase 57 (28-100) U/L Lipase 52 H (22-51) U/L Urine Color Yellow (YELLOW) Urine Appearance Slightly cloudy (CLEAR) Urine pH 5.5 (5.0-9.0) Ur Specific [place] >= 1.030 (1.005-1.030) Urine Protein >=300 H (NEGATIVE) Urine Glucose (UA) Negative (NEGATIVE) Urine Ketones 40 H (NEGATIVE) Urine Occult Blood Moderate H (NEGATIVE) Urine Nitrite Positive H (NEGATIVE) Urine Bilirubin Small H (NEGATIVE) Urine Urobilinogen 2.0 H (0.2-1.0) mg/dL Ur Leukocyte Esterase Negative (NEGATIVE) Urine RBC 20-30 H /HPF Urine WBC 0-5 (0-5/HPF) /HPF Ur Epithelial Cells Rare (NOT SEEN) /HPF Amorphous Sediment Few (NOT SEEN) /HPF Urine Bacteria Few (0-FEW/HPF) /HPF Urine Mucus Few H (NOT SEEN) /LPF Urine Opiates Screen Negative (NEGATIVE) Ur Oxycodone Screen Negative (NEGATIVE) Urine Methadone Screen Negative (NEGATIVE) Acetaminophen < 10 ug/mL Ur Barbiturates Screen Negative (NEGATIVE) U Tricyclic Antidepress Negative (NEGATIVE) Ur Phencyclidine Scrn Negative (NEGATIVE) Ur Amphetamine Screen Negative (NEGATIVE) U Methamphetamines Scrn Negative (NEGATIVE) Urine MDMA Screen Negative (NEGATIVE) U Benzodiazepines Scrn Negative (NEGATIVE) Urine Cocaine Screen Negative (NEGATIVE) U Marijuana (THC) Screen Negative (NEGATIVE) 06/08/19 06/08/19 06/08/19 Range/Units 19:45 19:45 19:45 WBC 34.3 H* (5.0-10.0) 10^3/uL RBC 5.55 (4.6-6.2) 10^6/uL Hgb 16.1 D (14.0-18.0) g/dL Hct 47.4 (40.0-54.0) % MCV 85.4 (80-100) fL MCH 29.0 (27.0-34.0) pg MCHC 34.0 (33.0-35.0) g/dL Plt Count 221 (150-450) 10^3/uL Neut % (Auto) 86.9 H (42.2-75.2) % Lymph % (Auto) 5.9 L (20.5-50.1) % [place] % (Auto) 6.9 (2-8) % Eos % (Auto) 0.1 L (1.0-3.0) % Baso % (Auto) 0.2 (0.0-1.0) % Add Manual Diff Yes Neutrophils % (Manual) 82 H (42-75) % Band Neutrophils % 5 % Lymphocytes % (Manual) 8 L (20-50) % Monocytes % (Manual) 5 (2-8) % Sodium 135 (135-145) mmol/L Potassium 3.2 L (3.6-5.0) mmol/L Chloride 100 L (101-111) mmol/L Carbon Dioxide 23.0 (21.0-31.0) mmol/L Anion Gap 15.2 BUN 11 (7-18) mg/dL Creatinine 1.0 (0.6-1.3) mg/dL Est Cr Clr Drug Dosing 104.54 mL/min Estimated GFR (MDRD) > 60 BUN/Creatinine Ratio 11.00 Glucose 128 H (74-105) mg/dL Lactic Acid 1.0 (0.5-2.2) mmol/L Calcium 8.9 (8.4-10.2) mg/dl Magnesium (1.8-2.5) mg/dL Total Bilirubin 2.5 H (0.2-1.0) mg/dL Direct Bilirubin (0.0-0.2) mg/dL Indirect Bilirubin AST 45 H (10-42) IU/L ALT 294 H (10-60) IU/L Alkaline Phosphatase 86 (42-121) IU/L Total Protein 8.2 (6.7-8.2) g/dl Albumin 4.3 (3.2-5.5) g/dl Globulin 3.9 Albumin/Globulin Ratio 1.10 Amylase (28-100) U/L Lipase (22-51) U/L Urine Color (YELLOW) Urine Appearance (CLEAR) Urine pH (5.0-9.0) Ur Specific [place] (1.005-1.030) Urine Protein (NEGATIVE) Urine Glucose (UA) (NEGATIVE) Urine Ketones (NEGATIVE) Urine Occult Blood (NEGATIVE) Urine Nitrite (NEGATIVE) Urine Bilirubin (NEGATIVE) Urine Urobilinogen (0.2-1.0) mg/dL Ur Leukocyte Esterase (NEGATIVE) Urine RBC /HPF Urine WBC (0-5/HPF) /HPF Ur Epithelial Cells (NOT SEEN) /HPF Amorphous Sediment (NOT SEEN) /HPF Urine Bacteria (0-FEW/HPF) /HPF Urine Mucus (NOT SEEN) /LPF Urine Opiates Screen (NEGATIVE) Ur Oxycodone Screen (NEGATIVE) Urine Methadone Screen (NEGATIVE) Acetaminophen ug/mL Ur Barbiturates Screen (NEGATIVE) U Tricyclic Antidepress (NEGATIVE) Ur Phencyclidine Scrn (NEGATIVE) Ur Amphetamine Screen (NEGATIVE) U Methamphetamines Scrn (NEGATIVE) Urine MDMA Screen (NEGATIVE) U Benzodiazepines Scrn (NEGATIVE) Urine Cocaine Screen (NEGATIVE) U Marijuana (THC) Screen (NEGATIVE) 06/09/19 06/09/19 06/09/19 Range/Units 06:10 06:10 06:10 WBC 30.3 H* (5.0-10.0) 10^3/uL RBC 5.15 (4.6-6.2) 10^6/uL Hgb 14.7 (14.0-18.0) g/dL Hct 44.4 (40.0-54.0) % MCV 86.2 (80-100) fL MCH 28.5 (27.0-34.0) pg MCHC 33.1 (33.0-35.0) g/dL Plt Count 193 (150-450) 10^3/uL Neut % (Auto) 86.2 H (42.2-75.2) % Lymph % (Auto) 7.5 L (20.5-50.1) % [place] % (Auto) 6.0 (2-8) % Eos % (Auto) 0.2 L (1.0-3.0) % Baso % (Auto) 0.1 (0.0-1.0) % Add Manual Diff Neutrophils % (Manual) (42-75) % Band Neutrophils % % Lymphocytes % (Manual) (20-50) % Monocytes % (Manual) (2-8) % Sodium 137 (135-145) mmol/L Potassium 3.6 (3.6-5.0) mmol/L Chloride 102 (101-111) mmol/L Carbon Dioxide 24.0 (21.0-31.0) mmol/L Anion Gap 14.6 BUN 11 (7-18) mg/dL Creatinine 1.0 (0.6-1.3) mg/dL Est Cr Clr Drug Dosing 104.54 mL/min Estimated GFR (MDRD) > 60 BUN/Creatinine Ratio Glucose 114 H (74-105) mg/dL Lactic Acid (0.5-2.2) mmol/L Calcium 8.5 (8.4-10.2) mg/dl Magnesium (1.8-2.5) mg/dL Total Bilirubin 1.9 H (0.2-1.0) mg/dL Direct Bilirubin 0.4 H (0.0-0.2) mg/dL Indirect Bilirubin 1.5 AST 26 (10-42) IU/L ALT 203 H (10-60) IU/L Alkaline Phosphatase 79 (42-121) IU/L Total Protein 7.3 (6.7-8.2) g/dl Albumin 3.7 (3.2-5.5) g/dl Globulin 3.6 Albumin/Globulin Ratio 1.03 Amylase (28-100) U/L Lipase 37 (22-51) U/L Urine Color (YELLOW) Urine Appearance (CLEAR) Urine pH (5.0-9.0) Ur Specific [place] (1.005-1.030) Urine Protein (NEGATIVE) Urine Glucose (UA) (NEGATIVE) Urine Ketones (NEGATIVE) Urine Occult Blood (NEGATIVE) Urine Nitrite (NEGATIVE) Urine Bilirubin (NEGATIVE) Urine Urobilinogen (0.2-1.0) mg/dL Ur Leukocyte Esterase (NEGATIVE) Urine RBC /HPF Urine WBC (0-5/HPF) /HPF Ur Epithelial Cells (NOT SEEN) /HPF Amorphous Sediment (NOT SEEN) /HPF Urine Bacteria (0-FEW/HPF) /HPF Urine Mucus (NOT SEEN) /LPF Urine Opiates Screen (NEGATIVE) Ur Oxycodone Screen (NEGATIVE) Urine Methadone Screen (NEGATIVE) Acetaminophen ug/mL Ur Barbiturates Screen (NEGATIVE) U Tricyclic Antidepress (NEGATIVE) Ur Phencyclidine Scrn (NEGATIVE) Ur Amphetamine Screen (NEGATIVE) U Methamphetamines Scrn (NEGATIVE) Urine MDMA Screen (NEGATIVE) U Benzodiazepines Scrn (NEGATIVE) Urine Cocaine Screen (NEGATIVE) U Marijuana (THC) Screen (NEGATIVE) Med Orders - Current: Current Medications Acetaminophen (Tylenol) 650 mg PO Q4H PRN PRN Reason: Pain (Mild 1-3)/fever Hydrocodone Bitart/Acetaminophen ([place] 325-10 Mg) 1 tab PO Q4H PRN PRN Reason: Pain (moderate 4-6) Heparin Sodium (Porcine) (Heparin Sodium) 5,000 units SUBCUT Q8HR [facility] Last Admin: 06/09/19 06:05 Dose: 5,000 units Hydrochlorothiazide (Hydrochlorothiazide) 25 mg PO DAILY [facility] Last Admin: 06/09/19 08:19 Dose: 25 mg Metronidazole 500 mg/ Premix 100 mls @ 100 mls/hr IV Q8H [facility] Last Admin: 06/09/19 08:17 Dose: 100 mls/hr Ciprofloxacin/Dextrose 400 mg/ (Premix) 200 mls @ 200 mls/hr IV Q12HR [facility] Lisinopril (Prinivil) 20 mg PO DAILY [facility] Last Admin: 06/09/19 08:19 Dose: 20 mg Morphine Sulfate (Morphine) 2 mg IVPUSH Q2H PRN PRN Reason: Pain (severe 7-10) Last Admin: 06/09/19 01:04 Dose: 2 mg Ondansetron HCl (Zofran) 4 mg IVPUSH Q6H PRN PRN Reason: Nausea/Vomiting Pantoprazole Sodium (Protonix) 40 mg PO BIDAC [facility] Last Admin: 06/09/19 06:06 Dose: 40 mg Sodium Chloride (Saline Flush) 10 ml FLUSH ASDIRECTED PRN PRN Reason: Keep Vein Open Zolpidem Tartrate (Ambien) 5 mg PO BEDTIME PRN PRN Reason: Sleep Last Admin: 06/09/19 01:03 Dose: 5 mg Discontinued Medications Sodium Chloride (Normal Saline) 1,000 mls @ 999 mls/hr IV .BOLUS ONE Stop: 06/08/19 21:06 Last Admin: 06/08/19 20:09 Dose: 999 mls/hr Lactated Ringer's (Ringers, Lactated) 1,000 mls @ 500 mls/hr IV ASDIRECTED [facility] Last Admin: 06/08/19 23:58 Dose: 500 mls/hr Ciprofloxacin/Dextrose 400 mg/ (Premix) 200 mls @ 200 mls/hr IV Q12HR [facility] Iopamidol (Isovue-300 (61%)) 100 ml IVPUSH ONETIME ONE Stop: 06/08/19 21:35 Last Admin: 06/08/19 22:46 Dose: 99 ml Potassium Chloride (Klor-Con 10) 40 meq PO ONETIME ONE Stop: 06/09/19 00:23 Last Admin: 06/09/19 01:03 Dose: 40 meq - Exam General: Alert, Oriented Neck: Supple Lungs: Clear to Auscultation, Normal Respiratory Effort Cardiovascular: Regular Rate, Regular Rhythm GI/Abdominal Exam: Normal Bowel Sounds, Soft, Tender (ruq ). No: Rebound Extremities: No Pedal Edema - Problem List & Annotations (1) Abdominal pain SNOMED Code(s): 21131163 Code(s): R10.9 - UNSPECIFIED ABDOMINAL PAIN Status: Acute Current Visit: No Qualifiers: Abdominal location: epigastric Qualified Code(s): R10.13 - Epigastric pain (2) Leukocytosis SNOMED Code(s): 347685455, 862381171 Code(s): D72.829 - ELEVATED WHITE BLOOD CELL COUNT, UNSPECIFIED Status: Acute Current Visit: No Qualifiers: Leukocytosis type: other Qualified Code(s): D72.828 - Other elevated white blood cell count (3) Pancreatitis SNOMED Code(s): 24233346 Code(s): K85.90 - ACUTE PANCREATITIS WITHOUT NECROSIS OR INFECTION, UNSP Status: Acute Current Visit: No Qualifiers: Chronicity: acute Pancreatitis type: unspecified pancreatitis type Acute pancreatitis complication: unspecified Qualified Code(s): K85.90 - Acute pancreatitis without necrosis or infection, unspecified (4) Cholecystitis SNOMED Code(s): 77043086 Code(s): K81.9 - CHOLECYSTITIS, UNSPECIFIED Status: Acute Current Visit: Yes - Problem List Review Problem List Initiated/Reviewed/Updated: Yes - My Orders Last 24 Hours: My Active Orders 06/09/19 00:29 Oxygen Therapy [RC] PRN Up With Assistance [RC] ASDIRECTED VTE/DVT Education [RC] PER UNIT ROUTINE Vital Signs [RC] 04,08,12,16,20,00 Acetaminophen [Tylenol] 650 mg PO Q4H PRN Acetaminophen/HYDROcodone [[place] 325-10 MG] 1 tab PO Q4H PRN Morphine 2 mg IVPUSH Q2H PRN Ondansetron [Zofran] 4 mg IVPUSH Q6H PRN Sodium Chloride 0.9% [Saline Flush] 10 ml FLUSH ASDIRECTED PRN Zolpidem [Ambien] 5 mg PO BEDTIME PRN Antiembolic Hose [OM.PC] Per Unit Routine Peripheral IV Insertion Adult [OM.PC] Routine Resuscitation Status Routine 06/09/19 00:30 Antiembolic Devices [RC] PER UNIT ROUTINE Peripheral IV Care [RC] , metroNIDAZOLE/Normal Saline [Flagyl 500 MG in NS 100 ML] 500 mg Premix Bag 100 bag IV Q8H 06/09/19 06:00 Heparin Sodium 5,000 units SUBCUT Q8HR Pantoprazole [ProTONIX] 40 mg PO BIDAC 06/09/19 07:00 Abdomen Ltd [US] Routine 06/09/19 09:00 Lisinopril [Prinivil] 20 mg PO DAILY hydroCHLOROthiazide 25 mg PO DAILY 06/09/19 09:41 Consult to Physician [CONS] Routine 06/09/19 09:42 Notify Provider Consults [RC] ASDIRECTED 06/09/19 10:00 Ciprofloxacin in D5W [Cipro in D5W 400 MG/200 ML] 400 mg Premix Bag 1 bag IV Q12HR 06/09/19 Breakfast Clear Liquid Diet [DIET] 06/10/19 05:11 BASIC METABOLIC PANEL,BMP [CHEM] AM CBC WITH AUTO DIFF [HEME] AM HEPATIC FUNCTION PANEL,HFP [CHEM] AM 06/10/19 05:15 BASIC METABOLIC PANEL,BMP [CHEM] AM CBC WITH AUTO DIFF [HEME] AM - Plan Plan:: 44-year-old gentleman with a history of hypertension. History of obesity. The patient presented with abdominal pain, malaise Noted to have leukocytosis, mildly elevated liver enzymes, normal lipase, amylase CT showing "pancreatitis" Abdominal pain With normal lipase and amylase but with abnormal CT showing pancreatitis Clinically appears to have more right upper quadrant abdominal pain compatible with cholecystitis RUQ u/s per tech - gallstones, no ductal dilatation likely has acute cholecystitis and gallstone pancreatitis enzymes better, duct not dilated likely passed a stone repeat liver enzymes in the morning, repeat the lipase in the morning Treat the patient symptomatically with pain medications of Tylenol, hydrocodone , morphine IV Started Zosyn consult surgery Hypokalemia recheck in AM Hypertension Continue hydrochlorothiazide, lisinopril DVT prophylaxis with subcutaneous heparin
[2019-06-09] MEDS: Ciprofloxacin in D5W 400 MG in Premix Bag 1 BAG IV SCH ×4 (10:37→21:00)
--- NOTE | 2019-06-09 11:12 | PCM.SN ---
- Free Text/Narrative Note: Discussed risks and benefits of laparoscopic cholecystectomy with patient. Even though he had PO liquids (water) within the last hour, he has only been on clear liquids since admission. Secondary to WBC elevated to 30K and evidence of pancreatitis on Xray, I think this should be done on an emergency basis and will proceed to the OR now.
[2019-06-09] MEDS: Lactated Ringers 1,000 ML IV SCH ×3 (11:18→14:55)
[2019-06-09] MEDS ORDERED: Nicotine 21 MG/24 Hr Patch TRDERM SCH ×2 (12:00→18:00)
[2019-06-09] MEDS ORDERED: Lactated Ringers 1,000 ML IV ONE (13:47)
--- NOTE | 2019-06-09 19:30 | OR ---
DATE: 06/09/2019 PREOPERATIVE DIAGNOSES: Acute cholecystitis, cholelithiasis. POSTOPERATIVE DIAGNOSES: Acute cholecystitis, cholelithiasis. PROCEDURE: Laparoscopic cholecystectomy. ANESTHESIA: General. ESTIMATED BLOOD LOSS: Minimal. SPECIMEN: Gallbladder and stones. INDICATION FOR PROCEDURE: This 44-year-old male, who was admitted to the hospital with epigastric and right upper quadrant abdominal pain. Ultrasound shows a gallbladder full of stones and he has evidence of peripancreatic fluid indicating possible pancreatitis and an elevated lipase level. His white blood cell count initially was 17,000, but lelia to 30,000 on the second admission day. PROCEDURE IN DETAIL: After adequate preparation, an infraumbilical incision was made. A 5 mm trocar placed under direct vision. The remaining trocars were placed in the abdomen. Examination of the gallbladder showed multiple omental adhesions to the body and [place]ghia pouch of the gallbladder. Otherwise, there were no other abnormalities. The adhesions were taken down by sharp and cautery dissection. The cystic triangle structures were identified, triply clipped and divided. The gallbladder was taken off the liver bed using cautery dissection. There were no spillage of bile or stones. The gallbladder was brought out through the epigastric trocar site by dilating the fascia. After the abdomen was desufflated, the fascia was reclosed with Vicryl suture. Skin was closed with 4-0 Monocryl. The gallbladder was opened on the back table, which showed the gallbladder to be packed with multiple pea-sized stones. [facility] /[id number]
[2019-06-10] MEDS: metroNIDAZOLE/Normal Saline 500 MG in Premix Bag 100 BAG IV SCH ×2 (00:19→08:39)
[2019-06-10] MEDS: Pantoprazole 40 MG Tab.CR PO SCH (06:00)
[2019-06-10] MEDS: Heparin Sodium 5,000 Units/ML Vial SUBCUT SCH (06:00)
[2019-06-10 07:24] LABS: ANION GAP 13.8; CHLORIDE,CL 101 mmol/L (101-111); SODIUM,NA 138 mmol/L (135-145)
[2019-06-10 08:30] VITALS: BP 112/63; PULSE 76
[2019-06-10] MEDS: Hydrochlorothiazide 25 MG Tab PO SCH (09:20)
[2019-06-10] MEDS: Ciprofloxacin in D5W 400 MG in Premix Bag 1 BAG IV SCH ×2 (09:20)
[2019-06-10] MEDS: Lisinopril 20 MG Tab PO SCH (09:20)
--- NOTE | 2019-06-10 10:52 | PCM.DCSUM1 ---
Discharge Summary - Hospital Course Free Text/Narrative:: 44-year-old gentleman with a history of hypertension and obesity. The patient presented with abdominal pain, malaise, Noted to have leukocytosis, mildly elevated liver enzymes, normal lipase, amylase RUQ US showed gallstones, no ductal dilatation Patient had a cholecystectomy during admission. He tolerated the procedure well. OK to discharge home on POD #1. Diagnosis: Stroke: No Modified Amanda Scale: No Symptoms at All Modified Bruna Scale Score: 0 - Discharge Data Discharge Date: 06/10/19 Discharge Disposition: Home, Self-Care 01 Condition: Good - Referral to Home Health Primary Care Physician: JOYLNN Hammer - Patient Summary/Data Consults: Consultations 06/09/19 09:41 Consult to Physician [CONS] Routine - Patient Instructions Diet: Usual Diet as Tolerated Activity: As Tolerated Driving: May Drive Today - Discharge Plan *PRESCRIPTION DRUG MONITORING PROGRAM REVIEWED*: Not Applicable *COPY OF PRESCRIPTION DRUG MONITORING REPORT IN PATIENT LJ: Not Applicable Home Medications: Home Meds Lisinopril/Hydrochlorothiazide [Lisinopril-Hctz 20-25 mg Tab] 1 tab PO DAILY [History] Patient Handouts: Laparoscopic Cholecystectomy, Care After, [id number] Referrals: PCP,Unobtain [Ordering Only Provider] - - Discharge Summary/Plan Comment DC Time >30 min.: No - Patient Data Vitals - Most Recent: Last Vital Signs Temp 36.8 C 06/10/19 08:28 Pulse 76 06/10/19 08:28 Resp 20 06/10/19 08:28 BP 112/63 06/10/19 09:20 Pulse Ox 98 06/10/19 08:28 Weight - Most Recent: 123.649 kg I&O - Last 24 hours: Intake & Output 06/09/19 06/10/19 06/10/19 22:59 06:59 14:59 Intake Total 600 300 Balance 600 300 Lab Results - Last 24 hrs: Laboratory Results - last 24 hr 06/10/19 06/10/19 Range/Units 06:20 06:20 WBC 20.0 H (5.0-10.0) 10^3/uL RBC 4.51 L (4.6-6.2) 10^6/uL Hgb 13.0 L D (14.0-18.0) g/dL Hct 39.4 L (40.0-54.0) % MCV 87.4 (80-100) fL MCH 28.8 (27.0-34.0) pg MCHC 33.0 (33.0-35.0) g/dL Plt Count 193 (150-450) 10^3/uL Neut % (Auto) 85.6 H (42.2-75.2) % Lymph % (Auto) 9.5 L (20.5-50.1) % [place] % (Auto) 4.8 (2-8) % Eos % (Auto) 0.0 L (1.0-3.0) % Baso % (Auto) 0.1 (0.0-1.0) % Sodium 138 (135-145) mmol/L Potassium 3.8 (3.6-5.0) mmol/L Chloride 101 (101-111) mmol/L Carbon Dioxide 27.0 (21.0-31.0) mmol/L Anion Gap 13.8 BUN 18 (7-18) mg/dL Creatinine 1.1 (0.6-1.3) mg/dL Est Cr Clr Drug Dosing 95.04 mL/min Estimated GFR (MDRD) > 60 Glucose 124 H (74-105) mg/dL Calcium 8.2 L (8.4-10.2) mg/dl Total Bilirubin 1.1 H (0.2-1.0) mg/dL Direct Bilirubin 0.3 H (0.0-0.2) mg/dL Indirect Bilirubin 0.8 AST 37 (10-42) IU/L ALT 136 H (10-60) IU/L Alkaline Phosphatase 71 (42-121) IU/L Total Protein 6.8 (6.7-8.2) g/dl Albumin 3.1 L (3.2-5.5) g/dl Globulin 3.7 Albumin/Globulin Ratio 0.84 LYNN Results - Last 24 hrs: Microbiology 06/08/19 19:36 Urine Culture - Final Urine, Voided MIXED IRIS SUGGESTIVE OF CONTAMINATION. 06/08/19 20:47 Aerobic Blood Culture - Preliminary Blood - Venous - Lab Draw NO GROWTH AFTER 1 DAY Anaerobic Blood Culture - Preliminary NO GROWTH AFTER 1 DAY 06/08/19 20:42 Aerobic Blood Culture - Preliminary Blood - Venous NO GROWTH AFTER 1 DAY Anaerobic Blood Culture - Preliminary NO GROWTH AFTER 1 DAY Med Orders - Current: Current Medications Acetaminophen (Tylenol) 650 mg PO Q4H PRN PRN Reason: Pain (Mild 1-3)/fever Hydrocodone Bitart/Acetaminophen ([place] 325-10 Mg) 1 tab PO Q4H PRN PRN Reason: Pain (moderate 4-6) Heparin Sodium (Porcine) (Heparin Sodium) 5,000 units SUBCUT Q8HR [facility] Last Admin: 06/10/19 06:00 Dose: Not Given Hydrochlorothiazide (Hydrochlorothiazide) 25 mg PO DAILY [facility] Last Admin: 06/10/19 09:20 Dose: 25 mg Metronidazole 500 mg/ Premix 100 mls @ 100 mls/hr IV Q8H [facility] Last Admin: 06/10/19 08:39 Dose: 100 mls/hr Ciprofloxacin/Dextrose 400 mg/ (Premix) 200 mls @ 200 mls/hr IV Q12HR [facility] Last Admin: 06/10/19 09:20 Dose: 200 mls/hr Lactated Ringer's (Ringers, Lactated) 1,000 mls @ 250 mls/hr IV ASDIRECTED [facility] Last Admin: 06/09/19 14:55 Dose: 250 mls/hr Lisinopril (Prinivil) 20 mg PO DAILY [facility] Last Admin: 06/10/19 09:20 Dose: 20 mg Miscellaneous Information (Check Patch) 1 ea TRDERM BEDTIME [facility] Last Admin: 06/09/19 21:03 Dose: Not Given Morphine Sulfate (Morphine) 2 mg IVPUSH Q2H PRN PRN Reason: Pain (severe 7-10) Last Admin: 06/09/19 01:04 Dose: 2 mg Nicotine (Habitrol) 21 mg TRDERM DAILY@1800 [facility] Last Admin: 06/09/19 18:10 Dose: Not Given Ondansetron HCl (Zofran) 4 mg IVPUSH Q6H PRN PRN Reason: Nausea/Vomiting Pantoprazole Sodium (Protonix) 40 mg PO BIDAC [facility] Last Admin: 06/10/19 06:00 Dose: 40 mg Sodium Chloride (Saline Flush) 10 ml FLUSH ASDIRECTED PRN PRN Reason: Keep Vein Open Zolpidem Tartrate (Ambien) 5 mg PO BEDTIME PRN PRN Reason: Sleep Last Admin: 06/09/19 01:03 Dose: 5 mg Discontinued Medications Sodium Chloride (Normal Saline) 1,000 mls @ 999 mls/hr IV .BOLUS ONE Stop: 06/08/19 21:06 Last Admin: 06/08/19 20:09 Dose: 999 mls/hr Lactated Ringer's (Ringers, Lactated) 1,000 mls @ 500 mls/hr IV ASDIRECTED [facility] Last Admin: 06/09/19 11:18 Dose: 100 mls/hr Ciprofloxacin/Dextrose 400 mg/ (Premix) 200 mls @ 200 mls/hr IV Q12HR [facility] Lactated Ringer's (Ringers, Lactated) 1,000 mls @ 1,000 mls/hr IV .BOLUS ONE Stop: 06/09/19 14:46 Last Admin: 06/09/19 14:19 Dose: Not Given Iopamidol (Isovue-300 (61%)) 100 ml IVPUSH ONETIME ONE Stop: 06/08/19 21:35 Last Admin: 06/08/19 22:46 Dose: 99 ml Nicotine (Habitrol) 21 mg TRDERM DAILY [facility] Last Admin: 06/09/19 14:06 Dose: Not Given Potassium Chloride (Klor-Con 10) 40 meq PO ONETIME ONE Stop: 06/09/19 00:23 Last Admin: 06/09/19 01:03 Dose: 40 meq
[2019-06-10] MEDS ORDERED: Lidocaine 2% 20 ML MDV INJECT ONE (11:04)
[2019-06-10] MEDS ORDERED: Dexamethasone 4 MG/ML SDV IV ONE (11:04)
[2019-06-10] MEDS ORDERED: Ondansetron 4 MG/2 ML SDV IV ONE (11:04)
[2019-06-10] MEDS ORDERED: Glycopyrrolate 0.2 MG/ML 2 ML SDV IV ONE (11:04)
[2019-06-10] MEDS ORDERED: Succinylcholine 200 MG/10 ML MDV IV ONE (11:04)
[2019-06-10] MEDS ORDERED: Propofol 200 MG/20 ML SDV IV ONE (11:04)
[2019-06-10] MEDS ORDERED: Ketorolac 30 MG/ML SDV IVPUSH ONE (11:04)
[2019-06-10] MEDS ORDERED: Rocuronium 50 MG/5 ML Vial IV ONE (11:04)
[2019-06-10] MEDS ORDERED: fentaNYL 250 MCG/5 ML SDV IV ONE (11:04)
[2019-06-10] MEDS ORDERED: Neostigmine Methylsulfate 10 MG/10 ML MDV IV ONE (11:04)
[2019-06-10] MEDS ORDERED: Midazolam 1 MG/ML 2 ML SDV IV ONE (11:04)
== END 2019-06-10 11:05 | disposition home or self-care (01) ==
LOC: DL.ED 19:16 → DL.MS 23:51
PROVIDERS: ADMIT Internal Medicine; ATTEND Hospitalist
DX: K80.00 Calculus of gallbladder with acute cholecystitis without obstruction (principal); K85.90 Acute pancreatitis without necrosis or infection, unspecified; K21.9 Gastro-esophageal reflux disease without esophagitis; I10 Essential (primary) hypertension; D72.829 Elevated white blood cell count, unspecified; E87.6 Hypokalemia; R94.5 Abnormal results of liver function studies; F17.210 Nicotine dependence, cigarettes, uncomplicated; E66.9 Obesity, unspecified; Z68.37 Body mass index [BMI] 37.0-37.9, adult; Z79.899 Other long term (current) drug therapy; Z88.0 Allergy status to penicillin
CPT/HCPCS: 00790; 36415; 74177; 76705; 80048; 80053; 80076; 80305-QW; 81001; 82150; 83605; 83690; 83735; 85025; 87040; 87086; 96360; 96361; 96365; 96366; 96367; 96372; 96375; 99285-25; A9270-GY; G0378; G0480; J0330; J0744; J1100; J1644; J1885; J2001; J2250; J2270; J2405; J2704; J2710; J3010; J3490; J7030; J7120; Q9967